=== PATIENT | male | born 1975 | race Caucasian/White ===

== ENCOUNTER 2018-07-09 20:23 | Emergency (ER) | payer MEDICARE, MEDICAID ==
--- NOTE | 2018-07-09 20:48 | ER Document Report ---
ED Medical Screen (RME) - General Chief Complaint: Psych Problem Stated Complaint: PSYCH Time Seen by Provider: 07/09/18 20:42 Primary Care Provider: MICHELLE AYOUB [Primary Care Provider] - Follow up as needed Mode of Arrival: Ambulatory Information source: Patient Notes: Patient presents emergency department for medical clearance to go [facility]. Patient reports he was told by [facility] that he had to come here to the hospital for clearance to be admitted there. He reports he is on Suboxone and Subutex and wants to get off the meds. Reports long history of of substance abuse. Denies suicidal or homicidal ideation. Reports he was told this 2 days ago but he finally got a ride here. No other complaints at this time I have greeted and performed a rapid initial assessment of this patient. A comprehensive ED assessment and evaluation of the patient, analysis of test results and completion of the medical decision making process will be conducted by additional ED providers. Dictation of this chart was performed using voice recognition software; therefore, there may be some unintended grammatical errors. TRAVEL OUTSIDE OF THE [place] IN LAST 30 DAYS: No - Related Data Allergies/Adverse Reactions: No Known Allergies Allergy (Unverified 07/09/18 20:26) Physical Exam - Vital signs Vitals: Temp Pulse Resp BP Pulse Ox 98.2 F 89 20 124/73 100 07/09/18 20:34 07/09/18 20:34 07/09/18 20:34 07/09/18 20:34 07/09/18 20:34 Course - Vital Signs Vital signs: Temp Pulse Resp BP Pulse Ox 98.2 F 89 20 124/73 100 07/09/18 20:34 07/09/18 20:34 07/09/18 20:34 07/09/18 20:34 07/09/18 20:34 Doctor's Discharge - Discharge Referrals: MICHELLE AYOUB [Primary Care Provider] - Follow up as needed
[2018-07-09 23:02] LABS: ABSOLUTE EOSINOPHILS # (AUTO) 0.2 10^3/uL (0.0-0.6); ABSOLUTE LYMPHOCYTES (AUTO) 2.2 10^3/uL (0.5-4.7); ABSOLUTE MONOCYTES (AUTO) 0.3 10^3/uL (0.1-1.4); ABSOLUTE NEUT (AUTO) 3.1 10^3/uL (1.7-8.2); APPEARANCE,URINE CLEAR; BASOPHILS % (AUTO) 0.5 % (0-2); BILIRUBIN,URINE NEGATIVE (NEGATIVE); COLOR,URINE YELLOW; EOSINOPHILS % (AUTO) 3.2 % (0-6); GLUCOSE, URINE NEGATIVE (NEGATIVE); HEMOGLOBIN 13.9 g/dL (13.5-17.0); KETONES,URINE NEGATIVE (NEGATIVE); LEUKOCYTE ESTERASE,URINE NEGATIVE (NEGATIVE); LYMPHOCYTES % (AUTO) 37.3 % (13-45); MEAN CORPUSCULAR HEMOGLOBIN 33.8 pg (27.0-33.4); MEAN CORPUSCULAR HGB CONC 34.7 g/dL (32.0-36.0); MEAN CORPUSCULAR VOLUME 98 fl (80-97); MONOCYTES % (AUTO) 5.7 % (3-13); NITRITE,URINE NEGATIVE (NEGATIVE); PLATELET COUNT 180 10^3/uL (150-450); PROTEIN,URINE NEGATIVE (NEGATIVE); RED CELL DISTRIBUTION WIDTH 13.4 % (11.5-14.0); SEGMENTED NEUTROPHILS % (AUTO) 53.3 % (42-78); TOTAL CELLS COUNTED % (AUTO) 100 %; URINE SPECIFIC GRAVITY 1.011; UROBILINOGEN,URINE NEGATIVE mg/dL (<2.0); WHITE BLOOD COUNT 5.8 10^3/uL (4.0-10.5)
[2018-07-09 23:18] LABS: ALANINE AMINOTRANSFERASE 20 U/L (21-72); ALBUMIN 4.2 g/dL (3.5-5.0); ALKALINE PHOSPHATASE 83 U/L (38-126); ANION GAP 9 (5-19); ASPARTATE AMINO TRANSFERASE 18 U/L (17-59); BILIRUBIN,DIRECT 0.2 mg/dL (0.0-0.4); BILIRUBIN,TOTAL 0.4 mg/dL (0.2-1.3); BLOOD UREA NITROGEN 14 mg/dL (7-20); CALCIUM 9.4 mg/dL (8.4-10.2); CARBON DIOXIDE 31 mmol/L (22-30); CHLORIDE 102 mmol/L (98-107); GLUCOSE 112 mg/dL (75-110); POTASSIUM 4.5 mmol/L (3.6-5.0); SODIUM 142.3 mmol/L (137-145); TOTAL PROTEIN 6.9 g/dL (6.3-8.2)
[2018-07-09 23:21] LABS: ACETAMINOPHEN < 10 ug/mL (10-30); ALCOHOL < 10 mg/dL (NONE DETECTED); SALICYLATE < 1.0 mg/dL (2.0-20.0)
--- NOTE | 2018-07-09 23:22 | ER Document Report ---
Addendum entered and electronically signed by DEION ARIZA LPC 07/10/18 09:38: Discharge - Discharge Clinical Impression: Substance abuse Depression Qualifiers: Depression Type: unspecified Qualified Code(s): F32.9 - Major depressive disorder, single episode, unspecified Condition: Stable Disposition: HOME, SELF-CARE Additional Instructions: You have been evaluated by both medical and behavioral providers while in the emergency department. You have been cleared from both medical and psychiatric services. You came voluntarily to obtain medical clearance for Subutex detox. [facility] stated they do not do just detox and are unable to do Subutex detox. You have been linked with [facility] in [place]. They have been provided with your name and phone number. You should follow through with their phone interview when they call you. You have been provided the substance abuse resource sheet that lists [facility] detox locations and mobile crisis number for further voluntary detox assistance. NARCOTIC / OPIOD ABUSE: (Subutex Regimen) Narcotics and opiods are pain-relieving drugs that are often abused. They are addicting. Narcotics cause euphoria, but it often takes increasing amounts to "feel good" and avoid withdrawal symptoms. Overdose of narcotics causes small pupils, coma, and decreased breathing. It's a common cause of . Purity of street narcotics is unpredictable. Injection of narcotics is risky for abscesses, endocarditis (heart infection), pneumonia, and AIDS. Withdrawal from narcotics causes goose bumps, watery mouth, sweating, nasal congestion, muscle aches, abdominal cramps, vomiting, and diarrhea. There's often restlessness and confusion. Treatment programs are available, but you must make the decision to quit. Medication (such as clonidine) can be prescribed to control the symptoms of withdrawal. AMPHETAMINE / METHAMPHETAMINE ABUSE: Amphetamines are addicting stimulants. Amphetamines overstimulate the nervous system and give a false feeling of power and mastery. These drugs may be obtained as prescription pills for weight loss, narcolepsy, or attention-deficit disorder. More often they're bought as an illegal street drug, methamphetamine (crank, crystal, speed). Using amphetamines repeatedly can lead to serious medical problems including malnutrition, severe depression, and paranoia. It can take increasing amounts to feel good. Eventually, there will be a "burn out." When you go off amphetamines there is a period of depression that may last for weeks or even months. High doses of amphetamines can cause seizures, confusion, hallucinations, delusions, high blood pressure, muscle damage, heart damage, or sudden . Many times these deadly complications occur even with "normal" doses. Injection of amphetamines is risky for developing abscesses, endocarditis (heart infection), pneumonia, and AIDS. Withdrawal from amphetamines often causes anxiety, depression, and drug cravings. Some users become paranoid and psychotic. There may be cramps, nausea, and vomiting. Many treatment programs are available, but you must make the decision to quit. Medication can be prescribed to control the symptoms of amphetamine toxicity (beta blockers or benzodiazepines). Withdrawal symptoms may require tranquilizers. FOLLOW-UP CARE: You should move forward with detox placement. You have been provided the substance abuse resource sheet that lists mobile crisis number as well as several detox facilities. If you experience worsening or a significant change in your symptoms, notify the physician immediately, utilize mobile crisis or return to the Emergency Department at any time for re-evaluation. Referrals: MICHELLE AYOUB [NO LOCAL ] - Follow up as needed [facility] [Outside] - Follow up as needed [facility] [Outside] - Follow up as needed Original Note: ED Psych Disorder / Suicide - General Mode of Arrival: Ambulatory TRAVEL OUTSIDE OF THE [place] IN LAST 30 DAYS: No <JASON MONROE - Last Filed: 07/10/18 08:47> <DEION ARIZA - Last Filed: 07/10/18 09:27> <ELLIOTT JOHN - Last Filed: 07/10/18 09:48> - General Chief Complaint: Psych Problem Stated Complaint: PSYCH Time Seen by Provider: 07/09/18 20:42 Primary Care Provider: [facility] [Outside] - Follow up as needed [facility] [Outside] - Follow up as needed MICHELLE AYOUB [MICHELLE SHANNON MD] - Follow up as needed Notes: Patient is a 42-year-old male who presents to the emergency department for wanting to be assessed for [facility] to wean off his Subutex. He has been on Subutex for the past 2 years. He has a history of narcotic pain medication and substance abuse in the past. He states that he was seen by [facility] physicians to manage his medications, but the patient would like to get off his Subutex. Patient states that he is depressed. He denies any suicidal or homicidal ideation at this time. He is taking care of himself well. He does admit to tobacco use via cigarettes and marijuana use. He is also taking Wellbutrin. States that he has not been on his Subutex for the past 4 days. (JASON MONROE) - Related Data Allergies/Adverse Reactions: No Known Allergies Allergy (Unverified 07/09/18 20:26) Past Medical History - General Information source: Patient - Social History Smoking Status: Current Every Day Smoker Chew tobacco use (# tins/day): No Frequency of alcohol use: None Drug Abuse: None Family History: Reviewed & Not Pertinent Patient has suicidal ideation: No Patient has homicidal ideation: No Renal/ Medical History: Denies: Hx Peritoneal Dialysis Past Surgical History: Reports: Hx Abdominal Surgery <JASON MONROE - Last Filed: 07/10/18 08:47> Review of Systems <JASON MONROE - Last Filed: 07/10/18 08:47> - Review of Systems Notes: REVIEW OF SYSTEMS: CONSTITUTIONAL : Denies recent illness. Denies recent unintentional weight loss. Denies fever, chills, or sweats. EENT: Denies eye, ear, throat, or mouth pain, discharge, or symptoms. Denies nasal or sinus congestion. CARDIOVASCULAR: Denies chest pain. RESPIRATORY: Denies shortness of breath, cough, congestion, difficulty breathing, or wheezing. GASTROINTESTINAL: Denies nausea, vomiting, and diarrhea. Denies abdominal pain. Denies constipation. GENITOURINARY: Denies difficulty urinating, burning, blood in urine, urgency or frequency. MUSCULOSKELETAL: Denies neck and back pain. Denies joint pain or swelling. SKIN: Denies rash, itchiness, or lesions HEMATOLOGIC : Denies easy bruising or bleeding. LYMPHATIC: Denies swollen, painful, enlarged glands. NEUROLOGICAL: Denies no numbness or tingling denies weakness. Denies headache. Denies altered mental status. Denies alteration in speech. PSYCHIATRIC: See HPI All other systems reviewed and negative. (JASON MONROE) Physical Exam <JASON MONROE - Last Filed: 07/10/18 08:47> - Vital signs Vitals: Temp Pulse Resp BP Pulse Ox 98.2 F 89 20 124/73 100 07/09/18 20:34 07/09/18 20:34 07/09/18 20:34 07/09/18 20:34 07/09/18 20:34 - Notes Notes: PHYSICAL EXAMINATION: GENERAL: Appears well, healthy, well-nourished, no acute distress. HEAD: Normocephalic, atraumatic. EYES: PERRL, conjunctiva normal, all extraocular movements intact, sclera nonicteric ENT: Moist mucous membranes. NECK: Supple, no noticeable swelling, redness, rash. Normal range of motion. LUNGS: Equal breath sounds bilaterally and clear to auscultation. No wheezes rales or rhonchi. CARDIOVASCULAR: S1-S2, regular rate, regular rhythm. Radial pulses 2+, normal. ABDOMEN: Normoactive bowel sounds. Soft, nontender, no guarding, no rebound tenderness, and no masses palpated. EXTREMITIES: Normal strength and range of motion, no pitting or edema. No cyanosis. NEUROLOGICAL: Moves all extremities upon command. Strength 5/5 in all extremities. PSYCH: Normal mood, normal affect. SKIN: Warm, dry. No rash, lesions, ulcerations noted. Normal skin turgor. (JASON MONROE) Course - Laboratory Result Diagrams: 07/09/18 22:45 07/09/18 22:45 <JASON MONROE - Last Filed: 07/10/18 08:47> - Laboratory Result Diagrams: 07/09/18 22:45 07/09/18 22:45 <ELLIOTT JOHN - Last Filed: 07/10/18 09:48> - Re-evaluation Re-evalutation: 07/10/18 03:00 The patient's urine drug screen is positive for benzodiazepines, amphetamines, and marijuana. He has already told me that he smokes marijuana. I asked him if he had taken any other medications that he might recall. He states that he took a friend's Valium the other day. This may be the reason why he is positive for benzodiazepines. I am not quite sure why the amphetamines are positive, but he states that he did take some cold medicine the other day. Patient states that he feels well. Urinalysis, CBC, and chemistries are normal. Patient is stable for mental health evaluation. (JASON MONROE) - Vital Signs Vital signs: Temp Pulse Resp BP Pulse Ox 98.2 F 89 20 124/73 100 07/09/18 20:34 07/09/18 20:34 07/09/18 20:34 07/09/18 20:34 07/09/18 20:34 - Laboratory Laboratory results interpreted by me: 07/09/18 07/09/18 07/09/18 22:45 22:45 22:45 RBC 4.10 L MCV 98 H MCH 33.8 H Carbon Dioxide 31 H Glucose 112 H ALT 20 L Urine Blood SMALL H Salicylates < 1.0 L Acetaminophen < 10 L - EKG Interpretation by Me Additional EKG results interpreted by me: 07/09/18 Sinus rhythm. Heart rate 81; MA 196; QRS 102; QT 384; QTc 446. No ST elevations or depressions noted. (JASON MONROE) Discharge <MABELJASON nAyi - Last Filed: 07/10/18 08:47> <DEION ARIZA - Last Filed: 07/10/18 09:27> <ELLIOTT JOHN - Last Filed: 07/10/18 09:48> - Discharge Clinical Impression: Substance abuse Depression Qualifiers: Depression Type: unspecified Qualified Code(s): F32.9 - Major depressive disorder, single episode, unspecified Condition: Stable Disposition: HOME, SELF-CARE Additional Instructions: You have been evaluated by both medical and behavioral providers while in the emergency department. You have been cleared from both medical and psychiatric services. You came voluntarily to obtain medical clearance for Subutex detox. [facility] stated they do not do just detox and are unable to do Subutex detox. You have been linked with [facility] in [place]. They have been provided with your name and phone number. You should follow through with their phone interview when they call you. You have been provided the substance abuse resource sheet that lists [facility] detox locations and mobile crisis number for further voluntary detox assistance. NARCOTIC / OPIOD ABUSE: (Subutex Regimen) Narcotics and opiods are pain-relieving drugs that are often abused. They are addicting. Narcotics cause euphoria, but it often takes increasing amounts to "feel good" and avoid withdrawal symptoms. Overdose of narcotics causes small pupils, coma, and decreased breathing. It's a common cause of . Purity of street narcotics is unpredictable. Injection of narcotics is risky for abscesses, endocarditis (heart infection), pneumonia, and AIDS. Withdrawal from narcotics causes goose bumps, watery mouth, sweating, nasal congestion, muscle aches, abdominal cramps, vomiting, and diarrhea. There's often restlessness and confusion. Treatment programs are available, but you must make the decision to quit. Medication (such as clonidine) can be prescribed to control the symptoms of withdrawal. AMPHETAMINE / METHAMPHETAMINE ABUSE: Amphetamines are addicting stimulants. Amphetamines overstimulate the nervous system and give a false feeling of power and mastery. These drugs may be obtained as prescription pills for weight loss, narcolepsy, or attention-deficit disorder. More often they're bought as an illegal street drug, methamphetamine (crank, crystal, speed). Using amphetamines repeatedly can lead to serious medical problems including malnutrition, severe depression, and paranoia. It can take increasing amounts to feel good. Eventually, there will be a "burn out." When you go off amphetamines there is a period of depression that may last for weeks or even months. High doses of amphetamines can cause seizures, confusion, hallucinations, delusions, high blood pressure, muscle damage, heart damage, or sudden . Many times these deadly complications occur even with "normal" doses. Injection of amphetamines is risky for developing abscesses, endocarditis (heart infection), pneumonia, and AIDS. Withdrawal from amphetamines often causes anxiety, depression, and drug cravings. Some users become paranoid and psychotic. There may be cramps, nausea, and vomiting. Many treatment programs are available, but you must make the decision to quit. Medication can be prescribed to control the symptoms of amphetamine toxicity (beta blockers or benzodiazepines). Withdrawal symptoms may require tranquilizers. FOLLOW-UP CARE: You should move forward with detox placement. You have been provided the substance abuse resource sheet that lists mobile crisis number as well as several detox facilities. If you experience worsening or a significant change in your symptoms, notify the physician immediately, utilize mobile crisis or return to the Emergency Department at any time for re-evaluation. Referrals: [facility] [Outside] - Follow up as needed [facility] [Outside] - Follow up as needed LOCALMD,NO [NO LOCAL MD] - Follow up as needed
[2018-07-09 23:38] LABS: URINE BARBITURATES SCREEN NEGATIVE; URINE COCAINE SCREEN NEGATIVE; URINE METHADONE SCREEN NEGATIVE; URINE PHENCYCLIDINE SCREEN NEGATIVE
[2018-07-09 23:44] LABS: URINE BENZODIAZEPINES SCREEN UNCONFIRMED POSITIVE
[2018-07-09 23:45] LABS: URINE AMPHETAMINES SCREEN UNCONFIRMED POSITIVE; URINE MARIJUANA (THC) SCREEN UNCONFIRMED POSITIVE
--- NOTE | 2018-07-10 06:37 | EKG REPORT ---
SEVERITY:- BORDERLINE ECG - SINUS RHYTHM BORDERLINE INFERIOR Q WAVES : Confirmed by: Rohan Trinidad MD 10-Jul-2018 06:36:31
--- NOTE | 2018-07-10 09:21 | ER Document Report ---
Doctor's Note Notes: 07/10/18 09:20 42-year-old male who presents yesterday requesting referral to [facility] to wean from his Subutex. Patient has a history of depression but denies any auditory or visual hallucinations, suicidal homicidal ideations. Patient has no pain to any location. Labs and drug screen as recorded. Awaiting psychiatric evaluation. 07/10/18 09:47 Patient has been seen and evaluated by the psychiatric team. They have linked the patient to [facility] who states that they will contact him as an outpatient as well as [facility] crisis center for follow-up. Patient still denies any suicidal or homicidal ideations. Patient will be discharged home at this time with strict return precautions and follow-up at the outside facilities for possible detox.
[2018-07-10 10:07] VITALS: BP 103/77
--- NOTE | 2018-07-10 14:40 | PSYCHOLOGICAL NOTE ---
Psych Note - Psych Note Date seen by psych provider: 07/10/18 Psych Note: Reason for Consult: Medical Clearance for voluntary [facility] placement, Subutex Detox Contact Permissions: at bedside Patient is a 42 year old male who presented to the ED last evening as a voluntary walk in for medical clearance to try to go to [facility] via voluntary process for Subutex Detox. 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 He denied SI/HI, no observed psychosis and these were never presenting concerns. He wants Subutex detox, called [facility] who reportedly told him he just needed to get medical clearance from the ED, and thought he could go right to [facility] for acceptance. [facility] Behavioral Health team CM contacted [facility] who said they do not do primary detox and cannot do Subutex, [facility] does not accept his Medicaid/Medicare and made linkage to [facility]. Provided patient and with the outpatient resource sheet which highlighted [facility] and also listed [facility] (they reside in [place]) to assist with detox treatment. Provided [facility] with patient name and 's phone number for linkage. Consulted with Dr. Gilman regarding the management and care of patient. ED Physician in agreement with recommendations.
== END 2018-07-10 10:07 | disposition home or self-care (01) ==
LOC: ER 20:23
DX: F19.10 Other psychoactive substance abuse, uncomplicated (principal); F32.9 Major depressive disorder, single episode, unspecified; Z79.899 Other long term (current) drug therapy; F17.210 Nicotine dependence, cigarettes, uncomplicated
CPT/HCPCS: 36415; 80053; 80307; 81001; 85025; 93005; 93010; 99284